=== PATIENT | male | born 1955 | race Caucasian/White ===

== ENCOUNTER → 2017-07-06 | Outpatient (CLI) | payer OTHER ==
[~2017-07-06] VITALS: Ht 175.3 cm; Wt 112.5 kg
[~2017-07-06] MED LIST: ADVIN25/60 INH; APIX1TAB3 PO; ASCORBIC ACID PO; ASPI81TA28 PO; CALC600T37 PO; CEFAZOLIN 2000MG IV PUSH 10 ML IV SCH; CHOL200010 PO; CHOL20007 PO; FLAX1CAP11 PO; GABAPENTIN 600MG PO; GLUC250C PO; LACTATED RINGER'S 1000ML 1,000 ML IV SCH; MULT-506 PO; NIAC500T11 PO; OMEGCAP2 PO; OXYC1TAB3 PO; SPIR1TAB PO; VENL150T33 PO; VITAMIN C PO; VNTHFA/IN INH; [UNRECOGNIZED DRUG - OTHER] PO
[2017-07-06 13:54] VITALS: Ht 175.3 cm; Wt 112.5 kg
--- NOTE | 2017-07-06 14:41 | PAT Medication Instructions ---
Service Date Jul 06, 2017. Current Home Medication List Albuterol Hfa (Ventolin Hfa), Unknown Dose INH UD PRN for asthma Apixaban (Eliquis), 5 MG PO BID Cholecalciferol (Vitamin D3), 10,000 INTERUNIT PO QAM Fluticasone Prop/Salmeterol (Advair Diskus 250/50 60 Dose), 1 PUFF INH BID Multivitamin (Multivitamin), 1 TAB PO QAM Niacin (Niacin), 1,000 MG PO HS Spirulina (Spirulina), 1 TAB PO TID Venlafaxine Hcl (Venlafaxine Hcl Er), 200 MG PO QAM [Lmethylfolat ], Unknown Dose PO HS [Vitamin C ], 500 MG PO BID Medication Instructions For Your Scheduled Surgery -Follow your prescriber's instructions for: Apixaban (Eliquis), 5 MG PO BID (HOLD FOR FOUR DAYS) - Hold the following medications 2 weeks prior to surgery: Spirulina (Spirulina), 1 TAB PO TID - Hold the following medications THE NIGHT BEFORE surgery: Niacin (Niacin), 1,000 MG PO HS - Hold the following medications the morning of surgery: [Vitamin C ], 500 MG PO BID Multivitamin (Multivitamin), 1 TAB PO QAM Cholecalciferol (Vitamin D3), 10,000 INTERUNIT PO QAM - Take the following medications the morning of surgery with a sip of water: Venlafaxine Hcl (Venlafaxine Hcl Er), 200 MG PO QAM Fluticasone Prop/Salmeterol (Advair Diskus 250/50 60 Dose), 1 PUFF INH BID Albuterol Hfa (Ventolin Hfa), Unknown Dose INH UD PRN for asthma (use if needed , and bring with you to the hospital) - Take the following medications as scheduled the night before surgery: [Vitamin C ], 500 MG PO BID [Lmethylfolat ], Unknown Dose PO HS If you have any questions please call us at [phone] or [phone] or [phone]
== END | disposition home or self-care (01) ==
LOC: C.LAB 08:00 → EDSTATUS 07-28 07:45
PROVIDERS: ATTEND Orthopaedic Surgery Orthopaedic Surgery of the Spine
DX: M54.17 Radiculopathy, lumbosacral region (principal); Z53.9 Procedure and treatment not carried out, unspecified reason; Z01.812 Encounter for preprocedural laboratory examination; Z01.818 Encounter for other preprocedural examination